=== PATIENT | female | born 1960 | race Hispanic/Latino ===

== ENCOUNTER 2017-11-18 07:47 | Emergency (ER) | payer OTHER ==
[2017-11-18 07:47] VITALS: BMI 28.1
[2017-11-18 07:58] VITALS: TEMP 97.7
--- NOTE | 2017-11-18 08:17 | ED PDOC ---
Arrival/HPI - General Chief Complaint: Anxiety Time Seen by Provider: 11/18/17 08:07 Historian: Patient - History of Present Illness Narrative History of Present Illness (Text): 11/18/17 08:17 57 year old female, whose past medical history includes depression, anxiety, hypertension, and hyperlipidemia, presents to the emergency department complaining of a sudden anxiety episode. Patient states she has a lot of problems going on in her life currently and states her anxiety may have been triggered due to physical weakness. Patient reports taking Pristiq daily and Xanax which she ran out of. Patient denies any fever, chills, chest pain, shortness of breath, nausea, vomiting, diarrhea, urinary symptoms, back pain, neck pain, headache, dizziness, suicidal/homicidal Ideation or any other complaints. Psychiatrist: Dr. Arzola PMD: Dr. Borges Symptom Onset: Sudden Symptom Course: Unchanged Activities at Onset: Light Context: Work Past Medical History - Provider Review Nursing Documentation Reviewed: Yes - Infectious Disease Hx of Infectious Diseases: None - Tetanus Immunization Tetanus Immunization: Unknown - Reproductive Menopause: No - Cardiac Hx Pacemaker: No - Pulmonary Hx Respiratory Disorders: No - Neurological Hx Neurological Disorder: No - HEENT Hx HEENT Disorder: No - Renal Hx Renal Disorder: No - Endocrine/Metabolic Hx Endocrine Disorders: No - Hematological/Oncological Hx Blood Transfusions: No Hx Blood Transfusion Reaction: No - Integumentary Hx Dermatological Disorder: No - Musculoskeletal/Rheumatological Hx Musculoskeletal Disorders: No - Gastrointestinal Hx Gastrointestinal Disorders: No - Genitourinary/Gynecological Hx Genitourinary Disorders: No - Psychiatric Hx Psychophysiologic Disorder: Yes Hx Anxiety: Yes Hx Emotional Abuse: No Hx Physical Abuse: No Hx Substance Use: No - Surgical History Hx Cardiac Catheterization: Yes Hx Coronary Stent: Yes Hx Tonsillectomy: Yes Hx Vascular Surgery: Yes (2 stents) - Anesthesia Hx Anesthesia Reactions: No Hx Malignant Hyperthermia: No - Suicidal Assessment Feels Threatened In Home Enviroment: No Family/Social History - Physician Review Nursing Documentation Reviewed: Yes Family/Social History: No Known Family HX Smoking Status: Light Smoker < 10 Cigarettes Daily Hx Alcohol Use: Yes Hx Substance Use: No Hx Substance Use Treatment: No Allergies/Home Meds Allergies/Adverse Reactions: Allergies No Known Allergies Allergy (Verified 06/15/16 08:29) Home Medications: Home Meds Medication Instructions Recorded Confirmed Alprazolam [Xanax] 0.25 mg PO PRN PRN 08/24/12 11/18/17 Clopidogrel [Plavix] 75 mg PO DAILY 06/15/16 11/18/17 Simvastatin 20 mg PO DAILY 11/22/16 11/18/17 Valsartan/Hydrochlorothiazide 1 tab PO DAILY 11/22/16 11/18/17 [Valsartan and Hydrochlorothiazide 25 mg-320 M] Review of Systems - Physician Review All systems were reviewed & negative as marked: Yes - Review of Systems Constitutional: absent: Fevers, Other (Chills) Respiratory: absent: SOB Gastrointestinal: absent: Diarrhea, Nausea, Vomiting Genitourinary Female: absent: Dysuria, Frequency, Hematuria Musculoskeletal: absent: Back Pain, Neck Pain Neurological: absent: Headache, Dizziness Psychiatric: Anxiety. absent: Suicidal Ideation (homicidal ideation) Physical Exam Vital Signs Reviewed: Yes Vital Signs Temp Pulse Resp BP Pulse Ox 11/18/17 10:01 71 18 145/91 H 100 11/18/17 07:57 97.7 F 109 H 22 167/103 H 98 Temperature: Afebrile Blood Pressure: Hypertensive Pulse: Regular Respiratory Rate: Normal Appearance: Positive for: Well-Appearing, Non-Toxic, Other (crying) Pain Distress: None Mental Status: Positive for: Alert and Oriented X 3 - Systems Exam Head: Present: Atraumatic, Normocephalic Pupils: Present: PERRL Extroacular Muscles: Present: EOMI Conjunctiva: Present: Normal Mouth: Present: Moist Mucous Membranes Neck: Present: Normal Range of Motion Respiratory/Chest: Present: Clear to Auscultation, Good Air Exchange. No: Respiratory Distress, Accessory Muscle Use Cardiovascular: Present: Regular Rate and Rhythm, Normal S1, S2. No: Murmurs Abdomen: Present: Normal Bowel Sounds. No: Tenderness, Distention, Peritoneal Signs Back: Present: Normal Inspection Upper Extremity: Present: Normal Inspection. No: Cyanosis, Edema Lower Extremity: Present: Normal Inspection. No: Edema Neurological: Present: GCS=15, CN II-XII Intact, Speech Normal Skin: Present: Warm, Dry, Normal Color. No: Rashes Psychiatric: Present: Alert, Oriented x 3, Normal Insight, Normal Concentration Medical Decision Making ED Course and Treatment: 11/18/17 08:17 57 year old female presents complaining of a sudden anxiety episode. Pt past medical history includes depression and anxiety. Plan: -- Labs -- EKG -- Ativan -- Urinalysis -- AES Crisis Eval -- Chest X-ray -- Reassess and disposition Progress Notes: 11/18/17 08:41 EKG shows NSR at 81 BPM with normal axis and normal intervals. Interpreted by me. EXAM: Chest X-ray Dictator : Olga Xiong MD Report Date : 11/18/2017 11:18:34 IMPRESSION: No active pulmonary disease. 11/18/17 11:10 On re-evaluation, patient feels better and is in no acute distress. I have discussed the results and plan with the patient, who expresses understanding. Patient in agreement with plan to be discharged home. Patient is stable for discharge. Patient was instructed to follow up with physician or return if symptoms worsen or new concerning symptoms arise. - Lab Interpretations Lab Results: 11/18/17 09:10 11/18/17 09:10 Lab Results 11/18/17 09:10: Alcohol, Quantitative < 10 11/18/17 09:10: Salicylates < 1 L, Acetaminophen < 10.0 L 11/18/17 09:10: Sodium 142, Potassium 4.0, Chloride 102, Carbon Dioxide 25, Anion Gap 19, BUN 26 H, Creatinine 1.0, Est GFR ( Amer) > 60, Est GFR ( Non-Af Amer) 57, Random Glucose 104, Calcium 10.4, Total Bilirubin 0.7, AST 39 H , ALT 40, Alkaline Phosphatase 98, Total Protein 8.7 H, Albumin 4.8, Globulin 3.9, Albumin/Globulin Ratio 1.2 11/18/17 09:10: WBC 9.7, RBC 4.52, Hgb 16.0, Hct 46.4, MCV 102.7, MCH 35.4 H, MCHC 34.5, RDW 12.6, Plt Count 331, MPV 10.2, Gran % 64.2, Lymph % (Auto) 26.8, Daniels % (Auto) 6.3 H, Eos % (Auto) 2.2, Baso % (Auto) 0.5, Gran # 6.22, Lymph # ( Auto) 2.6, Daniels # (Auto) 0.6, Eos # (Auto) 0.2, Baso # (Auto) 0.05 I have reviewed the lab results: Yes - RAD Interpretation Radiology Orders: 11/18/17 08:17 CHEST ONE VIEW [RAD] Stat - EKG Interpretation Interpreted by ED Physician: Yes - Medication Orders Current Medication Orders: Discontinued Medications Lorazepam (Ativan) 1 mg PO STAT STA PRN Reason: Protocol Stop: 11/18/17 08:18 Last Admin: 11/18/17 09:44 Dose: 1 mg - Scribe Statement The provider has reviewed the documentation as recorded by the Jimi Cordero Provider Scribe Attestation: All medical record entries made by the Jimi were at my direction and personally dictated by me. I have reviewed the chart and agree that the record accurately reflects my personal performance of the history, physical exam, medical decision making, and the department course for this patient. I have also personally directed, reviewed, and agree with the discharge instructions and disposition. Disposition/Present on Arrival - Present on Arrival Any Indicators Present on Arrival: No History of DVT/PE: No History of Uncontrolled Diabetes: No Urinary Catheter: No History of Decub. Ulcer: No History Surgical Site Infection Following: None - Disposition Have Diagnosis and Disposition been Completed?: Yes Diagnosis: Anxiety Disposition: HOME/ ROUTINE Disposition Time: 11:00 Condition: GOOD Discharge Instructions (ExitCare): Anxiety, Adult (DC) Additional Instructions: Thank you for letting us take care of you today. The emergency medical care you received today was directed at your acute symptoms. If you were prescribed any medication, please fill it and take as directed. It may take several days for your symptoms to resolve. Return to the Emergency Department if your symptoms worsen, do not improve, or if you have any other problems. Please contact your doctor or call one of the physicians/clinics you have been referred to that are listed on the Patient Visit Information form that is included in your discharge packet. Bring any paperwork you were given at discharge with you along with any medications you are taking to your follow up visit. Our treatment cannot replace ongoing medical care by a primary care provider (PCP) outside of the emergency department. Thank you for allowing the [facility] team to be part of your care today. Follow up with your psychiatrist as scheduled. Return to the emergency room if you have any concerns. Referrals: Bjorn Borges MD [Primary Care Provider] - Follow up with primary Forms: [employer] ([place])
[2017-11-18 09:33] LABS: ALB/GLOB RATIO 1.2 (1.1-1.8); ALBUMIN 4.8 g/dL (3.0-4.8); ALT/SGPT 40 U/L (7-56); AST/SGOT 39 U/L (14-36); BLOOD UREA NITROGEN 26 mg/dL (7-21); CALCIUM 10.4 mg/dL (8.4-10.5); GFR AFRICAN-AMERICAN > 60; GFR NON-AFRICAN AMERICAN 57
[2017-11-18 09:34] LABS: ACETAMINOPHEN < 10.0 ug/ml (10.0-20.0); BASO # 0.05 K/mm3 (0.0-2.0); BASO % 0.5 % (0.0-3.0); EOS # 0.2 (0.0-0.7); EOS % 2.2 % (1.5-5.0); GRAN # 6.22 (1.4-6.5); GRAN % 64.2 % (50.0-68.0); LYMPH # 2.6 (1.2-3.4); LYMPH % 26.8 % (22.0-35.0); MEAN CELL VOLUME 102.7 fl (80.0-105.0); MEAN CORPUSCULAR HEMOGLOBIN 35.4 pg (25.0-35.0); MEAN CORPUSCULAR HGB CONC 34.5 g/dl (31.0-37.0); MEAN PLATELET VOLUME 10.2 fl (7.0-11.0); MONO # 0.6 (0.1-0.6); MONO % 6.3 % (1.0-6.0); RBC 4.52 10^6/uL (3.5-6.1); RED CELL DISTRIBUTION WIDTH 12.6 % (11.5-14.5); SALICYLATE < 1 mg/dL (2.0-20.0); WHITE BLOOD COUNT 9.7 10^3/ul (4.5-11.0)
[2017-11-18 10:42] VITALS: BP 145/91; PULSE 71; RESP 18; O2SAT 100
--- NOTE | 2017-11-18 11:19 | RAD ---
PROCEDURE: CHEST RADIOGRAPH, 1 VIEW HISTORY: psych eval COMPARISON: None available. FINDINGS: LUNGS: The lungs are well inflated and clear. PLEURA: No pneumothorax or pleural fluid seen. CARDIOVASCULAR: Normal. OSSEOUS STRUCTURES: No significant abnormalities. VISUALIZED UPPER ABDOMEN: Normal. OTHER FINDINGS: None. IMPRESSION: No active pulmonary disease.
--- NOTE | 2017-11-18 22:52 | CARD ---
APPROVED REPORT EKG Measurement Heart [id number] MA 114P-5 [id number] <Conclusion> Normal sinus rhythm Normal ECG
== END 2017-11-18 11:40 | disposition home or self-care (01) ==
LOC: ED 07:47
DX: F41.9 Anxiety disorder, unspecified (principal); E78.5 Hyperlipidemia, unspecified; I10 Essential (primary) hypertension; F17.210 Nicotine dependence, cigarettes, uncomplicated

== ENCOUNTER 2018-12-12 06:57 | Outpatient (CLI) | payer OTHER | END 2018-12-12 06:58 | disposition home or self-care (01) | LOC: LAB 06:57 ==

== ENCOUNTER 2018-12-23 09:29 | Emergency (ER) | payer OTHER ==
[2018-12-23 09:29] VITALS: BMI 28.1
[2018-12-23] MEDS ORDERED: DiphenhydrAMINE 50 mg/ml Inj IVP STA (09:57)
--- NOTE | 2018-12-23 09:57 | ED PDOC ---
Arrival/HPI - General Historian: Patient - History of Present Illness Narrative History of Present Illness (Text): 12/23/18 09:53 Patient is a 58yo F with PMH of HTN, HLD, anxiety and depression presenting to ED with headache for the past 4 days. She reports a throbbing, dull, squeezing headache that she rates 8/10 in the forehead that is constant. She also feels the headache behind her eyes and admits to photophobia. She reports associated blurry vision. She denies numbness, tingling, trouble speaking, facial droop, or focal weakness. Patient reports painful blisters on her lip and nose that began on Saturday and have now crusted over. 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 She complains of associated fatigue and chills, saying she feels run down. Patient admits to recent stress in personal life which is giving her anxiety. <Joe Gage - Last Filed: 12/23/18 12:01> <Derek Figueroa - Last Filed: 12/23/18 18:49> - General Chief Complaint: Headache Time Seen by Provider: 12/23/18 09:34 Past Medical History - Infectious Disease Hx of Infectious Diseases: None - Tetanus Immunization Tetanus Immunization: Unknown - Cardiac Hx Cardiac Disorders: Yes Hx Hypertension: Yes Hx Pacemaker: No - Pulmonary Hx Respiratory Disorders: No - Neurological Hx Neurological Disorder: No - HEENT Hx HEENT Disorder: No - Renal Hx Renal Disorder: No - Endocrine/Metabolic Hx Endocrine Disorders: No - Hematological/Oncological Hx Blood Transfusions: No Hx Blood Transfusion Reaction: No - Integumentary Hx Dermatological Disorder: No - Musculoskeletal/Rheumatological Hx Musculoskeletal Disorders: No - Gastrointestinal Hx Gastrointestinal Disorders: No - Genitourinary/Gynecological Hx Genitourinary Disorders: No - Psychiatric Hx Psychophysiologic Disorder: Yes Hx Anxiety: Yes Hx Emotional Abuse: No Hx Physical Abuse: No Hx Substance Use: No - Surgical History Hx Cardiac Catheterization: Yes Hx Coronary Stent: Yes Hx Tonsillectomy: Yes Hx Vascular Surgery: Yes (2 stents) - Anesthesia Hx Anesthesia Reactions: No Hx Malignant Hyperthermia: No - Suicidal Assessment Feels Threatened In Home Enviroment: No <Joe Gage - Last Filed: 12/23/18 12:01> Family/Social History Family/Social History: No Known Family HX Smoking Status: Light Smoker < 10 Cigarettes Daily Hx Alcohol Use: Yes Hx Substance Use: No Hx Substance Use Treatment: No <Joe Gage - Last Filed: 12/23/18 12:01> Allergies/Home Meds <Joe Gage - Last Filed: 12/23/18 12:01> <Derek Figueroa - Last Filed: 12/23/18 18:49> Allergies/Adverse Reactions: Allergies No Known Allergies Allergy (Verified 06/15/16 08:29) Home Medications: Home Meds Medication Instructions Recorded Confirmed Alprazolam [Xanax] 0.25 mg PO PRN PRN 08/24/12 11/18/17 Clopidogrel [Plavix] 75 mg PO DAILY 06/15/16 11/18/17 Simvastatin 20 mg PO DAILY 11/22/16 11/18/17 Valsartan/Hydrochlorothiazide 1 tab PO DAILY 11/22/16 11/18/17 [Valsartan and Hydrochlorothiazide 25 mg-320 M] Review of Systems - Review of Systems Constitutional: Fatigue. absent: Fevers Eyes: Vision Changes, Photophobia ENT: absent: Hearing Changes Respiratory: absent: SOB, Cough Cardiovascular: absent: Chest Pain Gastrointestinal: absent: Abdominal Pain, Diarrhea, Nausea, Vomiting Genitourinary Female: absent: Dysuria Musculoskeletal: absent: Arthralgias Skin: Skin Lesions Neurological: Headache. absent: Dizziness, Speech Changes, Facial Droop Psychiatric: Anxiety <Joe Gage - Last Filed: 12/23/18 12:01> Physical Exam Vital Signs Temp Pulse Resp BP Pulse Ox 12/23/18 09:40 98.5 F 60 16 170/95 H 99 - Systems Exam Head: Present: Atraumatic, Normocephalic Pupils: Present: PERRL Extroacular Muscles: Present: EOMI Conjunctiva: Present: Normal Neck: Present: Normal Range of Motion Respiratory/Chest: Present: Clear to Auscultation, Good Air Exchange. No: Respiratory Distress, Accessory Muscle Use, Wheezes Cardiovascular: Present: Regular Rate and Rhythm, Normal S1, S2 Abdomen: Present: Normal Bowel Sounds. No: Tenderness, Distention, Peritoneal Signs Upper Extremity: Present: Normal Inspection Lower Extremity: Present: Normal Inspection Neurological: Present: GCS=15, CN II-XII Intact, Speech Normal Skin: Present: Other (multiple erythematous plaques on the right upper lip and right nare with secondary honey colored crust) Psychiatric: Present: Alert, Oriented x 3, Normal Insight <Joe Gage - Last Filed: 12/23/18 12:01> Vital Signs Temp Pulse Resp BP Pulse Ox 12/23/18 10:23 59 L 16 183/90 H 95 12/23/18 09:40 98.5 F 60 16 170/95 H 99 <Derek Figueroa - Last Filed: 12/23/18 18:49> Medical Decision Making ED Course and Treatment: migrain vs cva 12/23/18 10:25 Patient was seen and evaluated with resident. Patient is a 58 year old female who presents to the emergency department complaining of headache since 4 days. On exam, multiple erythematous plaques on the right upper lip and right nare. 12/23/18 18:[address] neg. pt refuses admission. explained have no r/o cva. asks fo dc. return [email or web address] Leaving Against Medical Advice (AMA): The patient is choosing to leave against medical advice. I have personally explained to the patient that choosing to do so may result in permanent bodily harm, disability, or . I have discussed at great length that without further evaluation and monitoring there may be unforeseen circumstances and/or deterioration causing permanent bodily harm or as a result of their choice. The patient is alert, oriented, and shows the mental capacity to make clear decisions regarding the patients health care at this time. The patient continues to wish to leave against medical advice. In light of the patients decision to leave against medical advice, follow-up has been arranged and the patient is aware of the importance to following up as instructed. The patient has been advised that they should return to the emergency room immediately if they change their mind at any time, or if their condition begins to change or worsen in any way. - RAD Interpretation Radiology Orders: 12/23/18 09:56 HEAD W/O CONTRAST [CT] Stat - Medication Orders Current Medication Orders: Discontinued Medications Acetaminophen (Tylenol 325mg Tab) 975 mg PO STAT STA Stop: 12/23/18 09:58 Last Admin: 12/23/18 10:19 Dose: 975 mg MAR Pain/Vitals Document 12/23/18 10:19 SRE (Rec: 12/23/18 10:19 SRE [id number]) Pain Reassessment Is This A Pain ReAssessment? Yes Sleep Is patient sleeping during reassessment? No Presence of Pain Presence of Pain Yes Diphenhydramine HCl (Benadryl) 25 mg IVP STAT STA Stop: 12/23/18 09:58 Last Admin: 12/23/18 10:20 Dose: 25 mg IVP Administration Document 12/23/18 10:20 SRE (Rec: 12/23/18 10:20 SRE [id number]) Charges for Administration # of IVP Administrations 1 Metoclopramide HCl (Reglan) 10 mg IVP STAT STA Stop: 12/23/18 09:58 Last Admin: 12/23/18 10:19 Dose: 10 mg IVP Administration Document 12/23/18 10:19 SRE (Rec: 12/23/18 10:20 SRE [id number]) Charges for Administration # of IVP Administrations 1 <Derek Figueroa - Last Filed: 12/23/18 18:49> Disposition/Present on Arrival - Present on Arrival Any Indicators Present on Arrival: No History of DVT/PE: No History of Uncontrolled Diabetes: No Urinary Catheter: No History of Decub. Ulcer: No History Surgical Site Infection Following: None - Disposition Have Diagnosis and Disposition been Completed?: Yes Disposition Time: 11:30 <Joe Gage - Last Filed: 12/23/18 12:01> <Derek Figueroa - Last Filed: 12/23/18 18:49> - Disposition Diagnosis: Headache, Blurry vision, Left against medical advice Disposition: HOME/ ROUTINE Condition: UNKNOWN Discharge Instructions (ExitCare): Migraine Headache (DC), Headache, Adult (DC), Leaving Against Medical Advice Additional Instructions: return to er with worsening symptoms or concerns. Referrals: Nikita Alvarez MD [Staff Provider] - Follow up with primary Forms: [employer] ([place]ish), WORK NOTE
[2018-12-23 10:08] VITALS: RESP 16; TEMP 98.5
[2018-12-23 10:23] LABS: BASO # 0.04 K/mm3 (0.0-2.0); BASO % 0.5 % (0.0-3.0); EOS # 0.1 (0.0-0.7); EOS % 1.1 % (1.5-5.0); HEMOGLOBIN 14.4 g/dL (12.0-16.0); LYMPH % 26.6 % (22.0-35.0); MEAN CELL VOLUME 102.7 fl (80.0-105.0); MEAN CORPUSCULAR HEMOGLOBIN 35.1 pg (25.0-35.0); MEAN CORPUSCULAR HGB CONC 34.2 g/dl (31.0-37.0); MEAN PLATELET VOLUME 9.9 fl (7.0-11.0); MONO # 0.6 (0.1-0.6); MONO % 8.2 % (1.0-6.0); RBC 4.1 10^6/uL (3.5-6.1); RED CELL DISTRIBUTION WIDTH 12.5 % (11.5-14.5); WHITE BLOOD COUNT 7.5 10^3/uL (4.5-11.0)
[2018-12-23 10:33] LABS: INR 1.05; PARTIAL THROMBOPLASTIN TIME 34.1 Seconds (26.9-38.3); PROTHROMBIN TIME 11.9 SECONDS (9.4-12.5)
[2018-12-23 10:42] LABS: ALB/GLOB RATIO 1.3 (1.1-1.8); ALBUMIN 4.2 g/dL (3.0-4.8); ALT/SGPT 27 U/L (7-56); AST/SGOT 40 U/L (14-36); BLOOD UREA NITROGEN 12 mg/dL (7-21); CALCIUM 9.3 mg/dL (8.4-10.5); GFR NON-AFRICAN AMERICAN > 60
[2018-12-23 11:02] LABS: URINE BILIRUBIN NEGATIVE (NEGATIVE); URINE BLOOD NEGATIVE (NEGATIVE); URINE GLUCOSE (UA) NEGATIVE (NEGATIVE); URINE LEUKOCYTE ESTERASE TRACE Leu/uL (NEGATIVE); URINE PROTEIN 100 mg/dL (<30 mg/dL); URINE UROBILINOGEN 0.2 E.U./dL (<1 E.U./dL)
[2018-12-23 11:07] LABS: URINE APPEARANCE CLEAR (CLEAR); URINE COLOR YELLOW (YELLOW)
--- NOTE | 2018-12-23 11:09 | CT ---
Date of service: 12/23/2018 PROCEDURE: CT HEAD WITHOUT CONTRAST. HISTORY: Headache COMPARISON: 04/22/2015. TECHNIQUE: Axial computed tomography images were obtained through the head/brain without intravenous contrast. Radiation dose: Total exam DLP = 908.03 mGy-cm. This CT exam was performed using one or more of the following dose reduction techniques: Automated exposure control, adjustment of the mA and/or kV according to patient size, and/or use of iterative reconstruction technique. FINDINGS: HEMORRHAGE: No intracranial hemorrhage. BRAIN: Cohen-white matter differentiation is preserved. There is no mass, mass effect or abnormal extra-axial fluid collection. There is no territorial infarction. The midline sagittal structures are normal. VENTRICLES: The ventricles are normal in size, shape and configuration. CALVARIUM: There is no calvarial fracture or extracranial soft tissue swelling. PARANASAL SINUSES: Predominantly clear. MASTOID AIR CELLS: Predominantly clear. OTHER FINDINGS: None. IMPRESSION: No acute intracranial abnormality.
[2018-12-23 11:20] VITALS: BP 153/82; PULSE 61; O2SAT 96
[2018-12-23 11:26] LABS: URINE BACTERIA MOD /hpf; URINE RBC 0 - 2 /hpf (0-2)
== END 2018-12-23 11:34 | disposition home or self-care (01) ==
LOC: ED 09:29
DX: R51 Headache (principal); H53.8 Other visual disturbances; E78.5 Hyperlipidemia, unspecified; I10 Essential (primary) hypertension; F17.210 Nicotine dependence, cigarettes, uncomplicated; F32.9 Major depressive disorder, single episode, unspecified
CPT/HCPCS: 70450; 80053; 81001; 85025; 85610; 85730; 87086; 96374; 96375; 99285; J1200; J2765